=== PATIENT | male | born 1995 | race Caucasian/White ===

== ENCOUNTER 2020-07-02 09:28 | Emergency (ER) | payer OTHER ==
--- NOTE | 2020-07-02 10:09 | EDM.PDOC ---
ED HPI GENERAL MEDICAL PROBLEM - General Chief Complaint: Lower Extremity Injury/Pain Stated Complaint: POSS BLOOD CLOT POST SURGERY/L ANKLE Time Seen by Provider: 07/02/20 10:00 Source of Information: Reports: Patient History Limitations: Reports: No Limitations - History of Present Illness INITIAL COMMENTS - FREE TEXT/NARRATIVE: 24-year-old male presents to the ED for evaluation of swelling and pain left posterior calf. Patient appreciates gradual development of pain left posterior mid calf about 3 days ago when much worse today. Of note patient underwent surgical repair of his talofibular ligament distal aspect 2 weeks ago after severe inversion injury to the ankle and MRI identified tear of the talofibular fibular ligament. Therefore he has been nonweightbearing and uses a knee scooter to get around. Denies any shortness of breath or pleuritic chest pain no cough no hemoptysis. No past history of DVT. Patient is morbidly obese at greater than 400 pounds and therefore is at risk for potential DVT. Onset: Gradual Onset Date: 06/30/20 Duration: Day(s):, Getting Worse Location: Reports: Lower Extremity, Left (Pain left mid posterior calf) Quality: Reports: Ache, Throbbing Severity: Moderate Improves with: Reports: None Worsens with: Reports: Movement Context: Reports: Other (Element of increased swelling and pain posterior mid calf over the last 3 days. He is 2 weeks post surgery on his left lower extremity with pins traversing the fibula and tibia distally to repair his torn talofibular ligament.). Denies: Activity (Dorsiflexing his foot increases the pain substantially), Exercise, Lifting, Sick Contact, Trauma Associated Symptoms: Reports: No Other Symptoms. Denies: Confusion, Chest Pain, Cough, Diaphoresis, Fever/Chills, Headaches, Loss of Appetite, Nausea/Vomiting, Rash, Seizure, Shortness of Breath, Syncope Treatments [employer]: Reports: Other (see below) (Hydrocodone acetaminophen as needed) Left Lower Leg Pain Score (Numeric/FACES): 4 - Related Data Allergies Allergy/AdvReac Type Severity Reaction Status Date / Time grass Allergy Swollen Uncoded 07/02/20 09:41 Eyes Home Meds: Home Meds Hydrocodone/Acetaminophen [Hydrocodone-Acetamin 5-325 mg] 1 tab PO ASDIRECTED PRN 07/02/20 [History] Past Medical History - Past Health History Medical/Surgical History: Denies Medical/Surgical History Endocrine/Metabolic History: Reports: Obesity/BMI 30+ - Past Surgical History HEENT Surgical History: Reports: Oral Surgery Social & Family History - Tobacco Use Tobacco Use Status *Q: Never Tobacco User - Caffeine Use Caffeine Use: Reports: None - Recreational Drug Use Recreational Drug Use: No - Living Situation & Occupation Living situation: Reports: Single Occupation: Student Review of Systems - Review of Systems Review Of Systems: See Below Constitutional: Denies: Chills, Diaphoresis, Fever, Weakness, Other Eyes: Reports: No Symptoms Ears: Reports: No Symptoms Nose: Reports: No Symptoms Mouth/Throat: Reports: No Symptoms Respiratory: Reports: No Symptoms Cardiovascular: Reports: No Symptoms GI/Abdominal: Reports: No Symptoms Genitourinary: Reports: No Symptoms Musculoskeletal: Reports: Other (Severe inversion injury to his left ankle a month ago. MRI subsequently diagnosed to have a having a torn distal talofibular ligament. He underwent surgery to the distal tib-fib 2 weeks ago with pinning across both bones distally.) Skin: Reports: No Symptoms Neurological: Reports: No Symptoms Psychiatric: Reports: No Symptoms ED EXAM, GENERAL - Physical Exam Exam: See Below Exam Limited By: No Limitations General Appearance: Alert, WD/WN, No Apparent Distress, Other (Temperature is 36.3 degrees. Heart rate 110 and sinus respiratory is 13 BP 130/78 pulse ox 97% room air) Eye Exam: Bilateral Eye: Normal Inspection (No blepharal pallor or scleral icterus.) Respiratory/Chest: No Respiratory Distress, Lungs Clear, Normal Breath Sounds, No Accessory Muscle Use, Decreased Breath Sounds (Creased breath sounds lower 40% lung krueger bilaterally due to large size.) Cardiovascular: Normal Peripheral Pulses, Regular Rate, Rhythm, No Edema, No Gallop, No Murmur Peripheral Pulses: 2+: Carotid (L), Carotid (R), Posterior Tibial (L), Posterior Tibial (R), Dorsalis Pedis (L), Dorsalis Pedis (R) Extremities: Other (Evidence of recent surgery to his distal left tib-fib. The left leg is definitely swollen and markedly increased in diameter as compared to the right leg. His pain is posteriorly at the juncture of the soleus and Achilles tendon. The soft tissues are still flaccid it is not taut. Adequate circul) Neurological: Alert, Oriented, CN II-XII Intact, Normal Cognition Psychiatric: Normal Affect, Normal Mood Skin Exam: Warm, Dry, Intact, Normal Color, No Rash Course - Vital Signs Last Recorded V/S: Last Vital Signs Temp 36.3 C 07/02/20 09:43 Pulse 110 H 07/02/20 09:43 Resp 13 07/02/20 09:43 BP 130/78 07/02/20 09:43 Pulse Ox 97 07/02/20 09:43 - Orders/Labs/Meds Labs: Laboratory Tests 07/02/20 07/02/20 07/02/20 Range/Units 10:29 10:29 10:29 WBC 10.27 H (4.23-9.07) K/mm3 RBC 5.10 (4.63-6.08) M/mm3 Hgb 13.9 (13.7-17.5) gm/dl Hct 44.7 (40.1-51.0) % MCV 87.6 (79.0-92.2) fl MCH 27.3 (25.7-32.2) pg MCHC 31.1 L (32.2-35.5) g/dl RDW Std Deviation 45.4 H (35.1-43.9) fL Plt Count 275 (163-337) K/mm3 MPV 10.3 (9.4-12.3) fl Neut % (Auto) 70.3 H (34.0-67.9) % Lymph % (Auto) 17.2 L (21.8-53.1) % [place] % (Auto) 10.4 (5.3-12.2) % Eos % (Auto) 1.5 (0.8-7.0) Baso % (Auto) 0.2 (0.1-1.2) % Neut # (Auto) 7.22 H (1.78-5.38) K/mm3 Lymph # (Auto) 1.77 (1.32-3.57) K/mm3 [place] # (Auto) 1.07 H (0.30-0.82) K/mm3 Eos # (Auto) 0.15 (0.04-0.54) K/mm3 Baso # (Auto) 0.02 (0.01-0.08) K/mm3 PT 11.6 (9.7-12.0) SECONDS INR 1.09 APTT 31.0 (21.7-31.4) SECONDS D-Dimer, Quantitative 2.11 H (0.19-0.50) mg/L Lactate Dehydrogenase 162 (85-227) U/L - Radiology Interpretation Free Text/Narrative:: 24-year-old male presents to the ED with swelling over the last 3 days to his left lower extremity. He underwent surgical procedure with pinning across his distal tib-fib on the left side for torn talofibular ligament 2 weeks ago. He is therefore been using a knee scooter to get around. He is nonweightbearing on the left side. Exam reveals that the left leg is more swollen than the right. No pitting edema identified. Pain identified in the distribution of the posterior calf at the junction of the soleus and gastrocnemius muscles to form the Achilles tendon. Plan D-dimer assay to be done with PT and PTT. A CBC to assess his platelet counts will also be done. Doppler ultrasound of the left lower extremity to be done. - Re-Assessments/Exams Free Text/Narrative Re-Assessment/Exam: 07/02/20 11:21 D-Dimer is mildly elevated at 2.11. He has not completed his Doppler ultrasound of his left lower extremity yet.Total white count is 10.27 with differential of 70% neutrophils. Hemoglobin is 13.9 with hematocrit of 44.7. Platelet count 275,000. PT is 11.6 with an INR of 1.09. PTT is 31.0. LDH is normal at 162. 07/02/20 11:54 Doppler ultrasound of the left lower extremity is negative for any deep venous thrombosis particular within the left lower extremity or within the right common femoral vein. It appears that it is his cast boot brace that he is wearing causing the problems is digging into the back of his origin of his Achilles tendon. Patient already had pretty good insight into this as the potential cause. Advised heat pack to the area 1/2-hour out of every 4 hours to help reduce pain and inflammation. Wear the cast boot brace as minimally as positive. Motrin 600 mg every 6 hours to reduce pain and inflammation. Departure - Departure Time of Disposition: 11:55 Disposition: Home, Self-Care 01 Condition: Fair Clinical Impression: Pain of left lower extremity - Discharge Information *PRESCRIPTION DRUG MONITORING PROGRAM REVIEWED*: Not Applicable *COPY OF PRESCRIPTION DRUG MONITORING REPORT IN PATIENT KARON: Not Applicable Referrals: PCP,None [Primary Care Provider] - Forms: ED Department Discharge Additional Instructions: Evaluation in the emergency room today in regards to pain in the posterior calf left side. You had recent surgery to the lower portions of the tibia and fibula arm 2 weeks ago in an effort to help your talofibular ligament heal after a severe inversion injury to your left ankle. On examination you are markedly tender to palpation on the back of your calf at the origin of the Achilles tendon. Deep vein ultrasound performed on the left lower extremity does not reveal any signs of blood clot. As you noted this is exactly where your cast boot brace is digging into the back of your calf with walking for the last 2 weeks and is likely the source of your pain. Suggest heat pack to the area 1/2- hour out of every 4 hours while awake for the next few days. Motrin 600 mg every 6-8 hours as necessary for relief of pain and discomfort. Follow-up with orthopedic surgeon as planned. Sepsis Event Note (ED) - Evaluation Sepsis Screening Result: No Definite Risk - Focused Exam Vital Signs: Vital Signs Temp Pulse Resp BP Pulse Ox 07/02/20 09:43 36.3 C 110 H 13 130/78 97
[2020-07-02 10:26] VITALS: BP 130/78; PULSE 110
--- NOTE | 2020-07-02 11:49 | US ---
Left lower extremity deep venous ultrasound: Duplex and color Doppler evaluation was obtained of the left common femoral, proximal greater saphenous, superficial femoral, popliteal, posterior tibial and peroneal veins. Right common femoral vein was also evaluated. Technologist's note: Suboptimal color of posterior tibial vein, suboptimal exam due to body habitus Findings: Normal phasic flow, augmentation and compression is believed to be present. Impression: 1. No definite findings of deep venous thrombosis is seen within the left lower extremity or within the right common femoral vein. Diagnostic code #2
== END 2020-07-02 12:10 | disposition home or self-care (01) ==
LOC: JD.ED 09:28
DX: M79.662 Pain in left lower leg (principal); R79.1 Abnormal coagulation profile; E66.9 Obesity, unspecified; Z68.43 Body mass index [BMI] 50.0-59.9, adult; Z91.048 Other nonmedicinal substance allergy status; Z98.890 Other specified postprocedural states
CPT/HCPCS: 36415; 83615; 85025; 85379; 85610; 85730; 93971-26-LT; 93971-LT; 99283; 99284-25

== ENCOUNTER 2021-03-25 11:01 | Emergency (ER) | payer OTHER ==
[2021-03-25 11:18] VITALS: BP 173/112; PULSE 110
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
== END 2021-03-25 11:45 | disposition home or self-care (01) ==
LOC: JD.ED 11:01
DX: H72.91 Unspecified perforation of tympanic membrane, right ear (principal); E66.9 Obesity, unspecified; Z68.44 Body mass index [BMI] 60.0-69.9, adult; Z88.8 Allergy status to other drugs, medicaments and biological substances
CPT/HCPCS: 99282

== ENCOUNTER 2022-04-16 11:06 | Emergency (ER) | payer OTHER ==
[2022-04-16 11:21] VITALS: BP 160/104; PULSE 100
[2022-04-16] MEDS ORDERED: Sodium Chloride 0.9% 10 ML Syringe FLUSH PRN (11:31)
[2022-04-16] MEDS ORDERED: Iopamidol 612 MG/ML 100 ML Bottle IVPUSH ONE (11:46)
[2022-04-16] MEDS ORDERED: Iopamidol 612 MG/ML 50 ML SDV IVPUSH ONE (11:46)
[2022-04-16] MEDS ORDERED: Sodium Chloride 0.9% 100 ML IV SCH (12:00)
== END 2022-04-16 13:45 | disposition home or self-care (01) ==
LOC: JD.ED 11:06
DX: M70.41 Prepatellar bursitis, right knee (principal); E66.9 Obesity, unspecified; Z68.44 Body mass index [BMI] 60.0-69.9, adult; Z91.048 Other nonmedicinal substance allergy status; Z79.899 Other long term (current) drug therapy; Z86.16 Personal history of COVID-19
CPT/HCPCS: 36415; 73701; 80053; 85025; 86140; 99284; J3490; Q9967

== ENCOUNTER 2022-04-27 10:09 | Emergency (ER) | payer OTHER ==
[2022-04-27] MEDS ORDERED: cefTRIAXone 1 GM, Lidocaine 1% 2.1 ML IM ONE ×2 (12:20)
[2022-04-27 12:42] VITALS: BP 171/130; PULSE 90
== END 2022-04-27 12:58 | disposition home or self-care (01) ==
LOC: JD.ED 10:09
DX: L03.115 Cellulitis of right lower limb (principal); E66.9 Obesity, unspecified; Z68.44 Body mass index [BMI] 60.0-69.9, adult; Z86.16 Personal history of COVID-19; Z91.048 Other nonmedicinal substance allergy status
CPT/HCPCS: 36415; 85025; 86140; 87070; 87075; 87205; 96372; 99283; J0696; J3490